=== PATIENT | female | born 1985 | race Caucasian/White ===

== ENCOUNTER 2016-08-16 18:40 | Emergency (ER) | payer OTHER ==
[2016-08-16 19:07] VITALS: BP 138/75; PULSE 86; RESP 18; TEMP 98.5; O2SAT 98
== END 2016-08-16 19:42 | disposition left against medical advice (07) | DRG 552 ==
LOC: ED 18:40
DX: M54.9 Dorsalgia, unspecified (principal)
CPT/HCPCS: 99281; 99282

== ENCOUNTER 2016-08-23 15:24 | Emergency (ER) | payer OTHER ==
[2016-08-23 15:42] VITALS: RESP 22; TEMP 97.1
[2016-08-23 16:09] LABS: BASOPHILS % (AUTO) 1 % (0-3); EOSINOPHILS % (AUTO) 0 % (0-9); HEMATOCRIT 40 % (35-47); MEAN CORPUSCULAR HGB CONC 34.1 gm/dl (32.0-36.0); MONOCYTES % (AUTO) 5.7 % (0-12); NEUTROPHILS % (AUTO) 66.6 % (37-80)
[2016-08-23 16:19] LABS: APPEARANCE,URINE Clear; BILIRUBIN,URINE NEGATIVE (NEGATIVE); COLOR,URINE Yellow; GLUCOSE, URINE (UA) NEGATIVE (NEGATIVE); KETONES,URINE NEGATIVE (NEGATIVE); LEUKOCYTE ESTERASE ,URINE NEGATIVE (NEGATIVE); NITRATE,URINE NEGATIVE (NEGATIVE); OCCULT BLOOD,URINE NEGATIVE (NEG-TRACE); UROBILINOGEN,URINE 0.2 (0.2-1.0 EU)
[2016-08-23 16:32] LABS: ALBUMIN 4.4 gm/dl (3.4-5.0); ALT 27 IU/L (14-63); CALCIUM 9.1 mg/dl (8.5-10.1); GLOM FILT RATE 68 mL/min (>60); POTASSIUM 3.8 mMol/L (3.5-5.1); SODIUM 139 mMol/L (136-145); THYROID STIMULATING HORMONE 0.703 uU/ml (0.358-3.740)
[2016-08-23 16:33] LABS: AMPHETAMINES NEGATIVE (NEGATIVE); METHADONE NEGATIVE (NEGATIVE); OPIATES(OP13) NEGATIVE (NEGATIVE); OXYCODONE(OXY) NEGATIVE (NEGATIVE); PROPOXYPHENE(PPX) NEGATIVE (NEGATIVE); RBC,URINE NEGATIVE (0-3AV/HPF); WBC,URINE 0-1 (0-5AV/HPF)
[2016-08-23 19:03] LABS: SALICYLATE 2.9 mg/dl (2.8-30.0)
[2016-08-23] MEDS ORDERED: APAP/HYDROCODONE 325/5 TAB PO ONE (19:19)
[2016-08-23] MEDS ORDERED: APAP/HYDROCODONE 325/5 TAB ONE (19:24)
[2016-08-23 20:01] VITALS: O2SAT 98
[2016-08-23 20:02] VITALS: BP 117/60; PULSE 88
== END 2016-08-23 19:54 | disposition short-term general hospital (02) | DRG 880 ==
LOC: ED 15:24
DX: R45.851 Suicidal ideations (principal)
CPT/HCPCS: 36415; 80053; 80301; 80302; 80329; 81001; 84443; 84703; 85025; 99284; 99285

== ENCOUNTER 2016-09-27 10:08 | Emergency (ER) | payer OTHER ==
[2016-09-27 11:13] VITALS: RESP 18; TEMP 97.4; O2SAT 96
[2016-09-27 11:55] VITALS: BP 120/80; PULSE 74
== END 2016-09-27 11:51 | disposition home or self-care (01) | DRG 392 ==
LOC: ED 10:08
DX: R13.10 Dysphagia, unspecified (principal); E03.9 Hypothyroidism, unspecified
CPT/HCPCS: 99282

== ENCOUNTER 2016-11-10 17:19 | Emergency (ER) | payer OTHER ==
[2016-11-10] MEDS ORDERED: KETOROLAC TROMETHAMINE 30 MG/ML SOL IM ONE (18:41)
[2016-11-10 18:50] LABS: BASOPHILS % (AUTO) 1 % (0-3); EOSINOPHILS % (AUTO) 1 % (0-9); HEMATOCRIT 31 % (35-47); MEAN CORPUSCULAR HGB CONC 33.9 gm/dl (32.0-36.0); MEAN CORPUSCULAR VOLUME 90 fL (81-99); MONOCYTES % (AUTO) 6.3 % (0-12); NEUTROPHILS % (AUTO) 74.1 % (37-80)
[2016-11-10] MEDS ORDERED: KETOROLAC TROMETHAMINE 30 MG/ML SOL ONE (18:56)
[2016-11-10 19:11] LABS: CALCIUM 8.3 mg/dl (8.5-10.1); POTASSIUM 3.9 mMol/L (3.5-5.1)
[2016-11-10] MEDS ORDERED: MORPHINE SULFATE 10 MG/ML SOL ONE (19:57)
[2016-11-10] MEDS ORDERED: MORPHINE SULFATE 10 MG/ML SOL IV ONE ×2 (20:00→20:20)
[2016-11-10] MEDS: SODIUM CHLORIDE 0.9% FLUSH 10 ML SOL IV PRN ×2 (20:00→20:22)
[2016-11-10 20:59] VITALS: TEMP 100.1
[2016-11-10] MEDS ORDERED: AZITHROMYCIN 250 MG TAB PO ONE (21:23)
[2016-11-10] MEDS ORDERED: PREDNISONE 20 MG TAB PO ONE (21:24)
[2016-11-10] MEDS ORDERED: PREDNISONE 20 MG TAB ONE (21:27)
[2016-11-10] MEDS ORDERED: AZITHROMYCIN 250 MG TAB ONE (21:27)
[2016-11-10] MEDS ORDERED: APAP/HYDROCODONE 325/5 TAB PO ONE (21:30)
[2016-11-10] MEDS ORDERED: APAP/HYDROCODONE 325/5 TAB ONE (21:31)
[2016-11-10 21:39] VITALS: BP 145/86; PULSE 84; RESP 26; O2SAT 92
== END 2016-11-10 21:47 | disposition home or self-care (01) | DRG 313 ==
LOC: ED 17:19
DX: R07.89 Other chest pain (principal); J06.9 Acute upper respiratory infection, unspecified; Z72.0 Tobacco use; R06.00 Dyspnea, unspecified
CPT/HCPCS: 36415; 71020; 71275; 80053; 83880; 84484; 84703; 85025; 85378; 87804; 93005; 96372; 96374; 99284; 99285; J1885; J2270; Q9967

== ENCOUNTER 2016-11-11 18:17 | Emergency (ER) | payer OTHER ==
[2016-11-11 18:44] VITALS: BP 141/86; PULSE 96; RESP 18; TEMP 98.4; O2SAT 95
== END 2016-11-11 19:28 | disposition home or self-care (01) | DRG 195 ==
LOC: ED 18:17
DX: R09.1 Pleurisy (principal)
CPT/HCPCS: 99282

== ENCOUNTER 2016-12-21 18:19 | Emergency (ER) | payer OTHER ==
[2016-12-21] MEDS ORDERED: HYDROMORPHONE HCL 2 MG/ML 1 ML SOL IV ONE ×2 (18:52→19:31)
[2016-12-21] MEDS ORDERED: HYDROMORPHONE HCL 2 MG/ML 1 ML SOL ONE ×2 (18:53→19:32)
[2016-12-21] MEDS: SODIUM CHLORIDE 0.9% FLUSH 10 ML SOL IV PRN ×2 (19:00→19:35)
[2016-12-21 19:43] VITALS: RESP 16; TEMP 98.7
[2016-12-21] MEDS ORDERED: ONDANSETRON HCL 4 MG/2 ML SOL IV ONE (19:47)
[2016-12-21 19:59] VITALS: BP 108/63; PULSE 87; O2SAT 98
== END 2016-12-21 20:02 | disposition home or self-care (01) ==
LOC: ED 18:19
DX: S20.211A Contusion of right front wall of thorax, initial encounter (principal); V86.59XA Driver of other special all-terrain or other off-road motor vehicle injured in nontraffic accident, initial encounter; R10.11 Right upper quadrant pain; S40.812A Abrasion of left upper arm, initial encounter; S40.811A Abrasion of right upper arm, initial encounter; S20.419A Abrasion of unspecified back wall of thorax, initial encounter
CPT/HCPCS: 99285 ×3; 74160; J1170 ×2; Q9967; 71101

== ENCOUNTER 2016-12-30 14:06 | Emergency (ER) | payer OTHER ==
[2016-12-30 14:07] VITALS: O2SAT 98
[2016-12-30 14:23] VITALS: RESP 20; TEMP 97.7
[2016-12-30 14:55] LABS: BASOPHILS % (AUTO) 2 % (0-3); EOSINOPHILS % (AUTO) 4 % (0-9); HEMATOCRIT 37 % (35-47); MEAN CORPUSCULAR HGB CONC 35.6 gm/dl (32.0-36.0); MEAN CORPUSCULAR VOLUME 85 fL (81-99); MONOCYTES % (AUTO) 10.9 % (0-12); NEUTROPHILS % (AUTO) 49.5 % (37-80)
[2016-12-30 15:00] LABS: CALCIUM 9.8 mg/dl (8.5-10.1)
[2016-12-30 15:01] LABS: POTASSIUM 2.5 mMol/L (3.5-5.1)
[2016-12-30] MEDS ORDERED: POTASSIUM CHLORIDE 10 MEQ TER PO ONE (15:01)
[2016-12-30] MEDS ORDERED: POTASSIUM CHLORIDE 10 MEQ TER ONE (15:02)
[2016-12-30 15:33] VITALS: BP 143/84; PULSE 96
== END 2016-12-30 15:34 | disposition home or self-care (01) ==
LOC: ED 14:06
DX: J18.9 Pneumonia, unspecified organism (principal); E87.6 Hypokalemia; R10.11 Right upper quadrant pain
CPT/HCPCS: 36415; 71020; 80053; 85025; 85378; 99282; 99283; 99284

== ENCOUNTER 2017-06-08 23:07 | Observation (INO) | payer OTHER ==
[2017-06-08] MEDS ORDERED: LORAZEPAM 2 MG/ML SOL IV ONE (23:22)
[2017-06-08] MEDS ORDERED: LORAZEPAM 2 MG/ML SOL ONE (23:30)
[2017-06-08 23:50] LABS: BASOPHILS % (AUTO) 1 % (0-3); EOSINOPHILS % (AUTO) 1 % (0-9); HEMATOCRIT 39 % (35-47); MEAN CORPUSCULAR HGB CONC 36.2 gm/dl (32.0-36.0); MEAN CORPUSCULAR VOLUME 88 fL (81-99); NEUTROPHILS % (AUTO) 51.3 % (37-80)
[2017-06-08 23:59] LABS: ALBUMIN 4.2 gm/dl (3.4-5.0); ALT 39 IU/L (14-63); CALCIUM 10.5 mg/dl (8.5-10.1); GLOM FILT RATE 52 mL/min (>60); SODIUM 135 mMol/L (136-145)
[2017-06-09 00:01] LABS: POTASSIUM 1.9 mMol/L (3.5-5.1)
[2017-06-09] MEDS ORDERED: POTASSIUM CHLORIDE 2 MEQ/ML 60 MEQ, LIDOCAINE HCL 1% MDV 2 ML in SODIUM CHLORIDE 0.9% 1... IV ONE (00:04)
[2017-06-09] MEDS ORDERED: SODIUM CHLORIDE 0.9% 1000ML 1,000 ML with POTASSIUM CHLORIDE 2 MEQ/ML 10 MEQ IV ONE (00:05)
[2017-06-09] MEDS ORDERED: POTASSIUM CHLORIDE 2 MEQ/ML SOL IV ONE (00:07)
[2017-06-09] MEDS ORDERED: LIDOCAINE HCL 1% MPF SOL ONE (00:08)
[2017-06-09] MEDS ORDERED: SODIUM CHLORIDE 0.9% FLUSH 10 ML SOL IV PRN (00:37)
[2017-06-09] MEDS ORDERED: DIPHENHYDRAMINE 50 MG/ML SOL IV PRN (00:52)
[2017-06-09] MEDS ORDERED: DIPHENHYDRAMINE 50 MG/ML SOL ONE (00:53)
[2017-06-09] MEDS ORDERED: ACETAMINOPHEN 500 MG 500 MG TAB PO PRN (02:45)
[2017-06-09] MEDS: SODIUM CHLORIDE 0.9% FLUSH 10 ML SOL IV SCH ×3 (02:55→17:21)
[2017-06-09] MEDS ORDERED: IBUPROFEN 400 MG TAB PO PRN (08:42)
[2017-06-09] MEDS ORDERED: RIZATRIPTAN BENZOATE PO PRN (08:42)
[2017-06-09 09:02] LABS: APPEARANCE,URINE Slightly Cloudy; BILIRUBIN,URINE NEGATIVE (NEGATIVE); COLOR,URINE Yellow; GLUCOSE, URINE (UA) NEGATIVE (NEGATIVE); KETONES,URINE NEGATIVE (NEGATIVE); LEUKOCYTE ESTERASE ,URINE NEGATIVE (NEGATIVE); NITRATE,URINE NEGATIVE (NEGATIVE); OCCULT BLOOD,URINE NEGATIVE (NEG-TRACE); UROBILINOGEN,URINE 0.2 (0.2-1.0 EU)
[2017-06-09 09:38] LABS: RBC,URINE 0-2 (0-3AV/HPF); WBC,URINE 0-4 (0-5AV/HPF)
[2017-06-09] MEDS: HYDROCHLOROTHIAZIDE 25 MG TAB PO SCH (09:47)
[2017-06-09] MEDS: FLUOXETINE HYDROCHLORIDE 10 MG CAP PO SCH (09:48)
[2017-06-09] MEDS ORDERED: POTASSIUM CHLORIDE 10 MEQ TER PO ONE ×5 (11:30→20:00)
[2017-06-09 23:51] VITALS: PULSE 76
[2017-06-10] MEDS: SODIUM CHLORIDE 0.9% FLUSH 10 ML SOL IV SCH ×2 (02:10→11:20)
[2017-06-10 07:23] LABS: CALCIUM 9.5 mg/dl (8.5-10.1); POTASSIUM 4.1 mMol/L (3.5-5.1)
[2017-06-10 09:41] LABS: AMPHETAMINES POSITIVE (NEGATIVE); METHADONE NEGATIVE (NEGATIVE); OPIATES(OP13) NEGATIVE (NEGATIVE); OXYCODONE(OXY) NEGATIVE (NEGATIVE); PROPOXYPHENE(PPX) NEGATIVE (NEGATIVE); TRICYCLIC ANTIDEPRESSANTS NEGATIVE (NEGATIVE)
[2017-06-10] MEDS: HYDROCHLOROTHIAZIDE 25 MG TAB PO SCH (09:54)
[2017-06-10] MEDS: FLUOXETINE HYDROCHLORIDE 10 MG CAP PO SCH (10:04)
[2017-06-10 10:15] VITALS: BP 113/70; RESP 20; TEMP 97.2; O2SAT 99
== END 2017-06-10 10:50 | disposition home or self-care (01) ==
LOC: ED 23:07 → ACUTE CARE 06-09 00:45
PROVIDERS: ADMIT Surgery; ATTEND Surgery
DX: N17.9 Acute kidney failure, unspecified (principal); E87.6 Hypokalemia; G93.5 Compression of brain; E86.0 Dehydration
CPT/HCPCS: 36415; 80048; 80053; 80305; 81001; 84132; 84484; 85025; 96365; 96374; 99284; 99285; J1200; J2060; J3480; J2001

== ENCOUNTER 2017-07-25 10:17 | Emergency (ER) | payer OTHER ==
[2017-07-25] MEDS: SODIUM CHLORIDE 0.9% FLUSH 10 ML SOL IV PRN ×3 (10:30→11:34)
[2017-07-25] MEDS ORDERED: ONDANSETRON HCL 4 MG/2 ML 4 MG in SODIUM CHLORIDE 0.9% 100 ML 100 ML IV ONE (10:33)
[2017-07-25] MEDS ORDERED: PROCHLORPERAZINE EDISYLATE 5 MG/ML SOL IV ONE (10:33)
[2017-07-25] MEDS ORDERED: PROCHLORPERAZINE EDISYLATE 5 MG/ML SOL ONE (10:38)
[2017-07-25] MEDS ORDERED: ONDANSETRON HCL 4 MG/2 ML SOL ONE (10:38)
[2017-07-25] MEDS: SODIUM CHLORIDE 0.9% 1000ML 1,000 ML IV SCH ×2 (11:00→12:32)
[2017-07-25 11:05] VITALS: TEMP 97
[2017-07-25 11:10] LABS: BASOPHILS % (AUTO) 1 % (0-3); EOSINOPHILS % (AUTO) 1 % (0-9); HEMATOCRIT 34 % (35-47); MEAN CORPUSCULAR VOLUME 92 fL (81-99); MONOCYTES % (AUTO) 8.2 % (0-12); NEUTROPHILS % (AUTO) 68.1 % (37-80)
[2017-07-25 11:33] LABS: ALBUMIN 3.4 gm/dl (3.4-5.0); CALCIUM 8.9 mg/dl (8.5-10.1); POTASSIUM 3.8 mMol/L (3.5-5.1); THYROID STIMULATING HORMONE 0.765 uIU/ml (0.358-3.740)
[2017-07-25] MEDS ORDERED: MORPHINE SULFATE 10 MG/ML SOL IV ONE (11:33)
[2017-07-25] MEDS ORDERED: MORPHINE SULFATE 10 MG/ML SOL ONE (11:35)
[2017-07-25 11:51] VITALS: RESP 16
[2017-07-25 12:05] VITALS: BP 121/74; PULSE 78; O2SAT 98
[2017-07-25 12:22] LABS: AMPHETAMINES POSITIVE (NEGATIVE); METHADONE NEGATIVE (NEGATIVE); OPIATES(OP13) POSITIVE (NEGATIVE); OXYCODONE(OXY) NEGATIVE (NEGATIVE); PROPOXYPHENE(PPX) NEGATIVE (NEGATIVE); TRICYCLIC ANTIDEPRESSANTS NEGATIVE (NEGATIVE)
== END 2017-07-25 12:56 | disposition home or self-care (01) ==
LOC: ED 10:17
DX: G43.119 Migraine with aura, intractable, without status migrainosus (principal)
CPT/HCPCS: 36415; 70450; 80053; 80305; 84443; 84703; 85025; 93005; 99285; J0780; J2270; J2405

== ENCOUNTER 2017-11-29 14:27 | Emergency (ER) | payer OTHER ==
[2017-11-29 14:42] VITALS: TEMP 97.2
[2017-11-29] MEDS ORDERED: NITROGLYCERIN 0.4 MG TAB SL PRN (14:42)
[2017-11-29] MEDS ORDERED: ASPIRIN 81 MG CHEWABLE CTB PO STA (14:42)
[2017-11-29] MEDS ORDERED: KETOROLAC TROMETHAMINE 30 MG/ML SOL IV ONE (14:44)
[2017-11-29] MEDS ORDERED: KETOROLAC TROMETHAMINE 30 MG/ML SOL ONE (14:45)
[2017-11-29 15:00] LABS: BASOPHILS % (AUTO) 1 % (0-3); BLOOD UREA NITROGEN 10 mg/dl (7-18); CARBON DIOXIDE 26.7 mEq/L (21-32); CHLORIDE 97 mMol/L (98-107); CREATINE KINASE 141 U/L (26-192); CREATININE 0.94 mg/dl (0.60-1.00); EOSINOPHILS % (AUTO) 1 % (0-9); GLOM FILT RATE 69 mL/min (>60); GLUCOSE 106 mg/dl (74-106); HEMATOCRIT 41 % (35-47); HEMOGLOBIN 14.5 gm/dl (12.0-15.5); INR 0.88 (0.86-1.12); LYMPHOCYTES % (AUTO) 30.9 % (10-50); MEAN CORPUSCULAR HGB CONC 35.4 gm/dl (32.0-36.0); MEAN CORPUSCULAR VOLUME 90 fL (81-99); MONOCYTES % (AUTO) 7.6 % (0-12); NEUTROPHILS % (AUTO) 58.9 % (37-80); SODIUM 137 mMol/L (136-145); TROP I < 0.017 ng/ml (0.000-0.056)
[2017-11-29 15:01] LABS: POTASSIUM 2.9 mMol/L (3.5-5.1)
[2017-11-29] MEDS ORDERED: POTASSIUM CHLORIDE 10 MEQ TER PO ONE (15:06)
[2017-11-29] MEDS: SODIUM CHLORIDE 0.9% FLUSH 10 ML SOL IV PRN ×2 (15:07→15:10)
[2017-11-29] MEDS ORDERED: POTASSIUM CHLORIDE 10 MEQ TER ONE (15:09)
[2017-11-29] MEDS ORDERED: ASPIRIN 81 MG CHEWABLE CTB ONE (15:09)
[2017-11-29] MEDS ORDERED: APAP/HYDROCODONE 325/5 TAB PO ONE (15:56)
[2017-11-29] MEDS ORDERED: APAP/HYDROCODONE 325/5 TAB ONE (15:59)
[2017-11-29 16:21] VITALS: O2SAT 97
[2017-11-29 16:22] VITALS: RESP 20
[2017-11-29 16:23] VITALS: BP 137/91; PULSE 89
== END 2017-11-29 16:03 | disposition home or self-care (01) ==
LOC: ED 14:27
DX: R09.1 Pleurisy (principal)
CPT/HCPCS: 71045; 80048; 82550; 84484; 84703; 85025; 85610; 85730; 93005; 99285; J1885; A9270-GY

== ENCOUNTER 2017-12-22 11:16 | Emergency (ER) | payer OTHER ==
[2017-12-22 11:25] VITALS: TEMP 96.8
[2017-12-22] MEDS ORDERED: ONDANSETRON HCL 4 MG/2 ML SOL IV ONE (11:32)
[2017-12-22] MEDS ORDERED: MORPHINE SULFATE 10 MG/ML SOL IV ONE (11:33)
[2017-12-22] MEDS ORDERED: SODIUM CHLORIDE 0.9% 1000 ML SOL IV ONE (11:34)
[2017-12-22 11:40] LABS: BASOPHILS % (AUTO) 1 % (0-3); EOSINOPHILS % (AUTO) 0 % (0-9); HEMATOCRIT 42 % (35-47); HEMOGLOBIN 14.6 gm/dl (12.0-15.5); LYMPHOCYTES % (AUTO) 10.3 % (10-50); MEAN CORPUSCULAR HEMOGLOBIN 31.6 pg (27.0-32.0); MEAN CORPUSCULAR HGB CONC 34.5 gm/dl (32.0-36.0); MEAN CORPUSCULAR VOLUME 92 fL (81-99); MONOCYTES % (AUTO) 5.7 % (0-12); NEUTROPHILS % (AUTO) 83.2 % (37-80)
[2017-12-22] MEDS ORDERED: MORPHINE SULFATE 10 MG/ML SOL ONE (11:47)
[2017-12-22] MEDS ORDERED: ONDANSETRON HCL 4 MG/2 ML SOL ONE (11:47)
[2017-12-22 11:53] LABS: ALBUMIN 4.4 gm/dl (3.4-5.0); BILIRUBIN,TOTAL 0.3 mg/dl (0.2-1.0); CALCIUM 8.9 mg/dl (8.5-10.1); CARBON DIOXIDE 29.3 mEq/L (21-32); CREATININE 0.77 mg/dl (0.60-1.00); TOTAL PROTEIN 8.7 gm/dl (6.4-8.2)
[2017-12-22 12:17] LABS: APPEARANCE,URINE Clear; BILIRUBIN,URINE NEGATIVE (NEGATIVE); COLOR,URINE Light yellow; GLUCOSE, URINE (UA) NEGATIVE (NEGATIVE); KETONES,URINE NEGATIVE (NEGATIVE); LEUKOCYTE ESTERASE ,URINE NEGATIVE (NEGATIVE); NITRATE,URINE NEGATIVE (NEGATIVE); OCCULT BLOOD,URINE 2+ (NEG-TRACE); PH,URINE 7.5; UROBILINOGEN,URINE 0.2 (0.2-1.0 EU)
[2017-12-22] MEDS ORDERED: KETOROLAC TROMETHAMINE 30 MG/ML SOL IV ONE (12:31)
[2017-12-22] MEDS ORDERED: KETOROLAC TROMETHAMINE 30 MG/ML SOL ONE (12:32)
[2017-12-22 12:36] LABS: BACTERIA 1+ (< 1+); CRYSTALS NEGATIVE (0-3 AVE/HPF); EPITHELIAL CELLS 0-1 (SQUAMOUS); WBC,URINE 0-2 (0-5AV/HPF)
[2017-12-22 12:40] VITALS: O2SAT 97
[2017-12-22 12:45] VITALS: BP 118/73; PULSE 78; RESP 16
== END 2017-12-22 14:03 | disposition home or self-care (01) ==
LOC: ED 11:16
DX: N15.9 Renal tubulo-interstitial disease, unspecified (principal); R10.9 Unspecified abdominal pain
CPT/HCPCS: 74176; 80053; 81001; 84703; 85025; 96365; 96374; 96375; 99283; 99285; J1885; J2270; J2405

== ENCOUNTER 2018-05-02 19:49 | Emergency (ER) | payer MEDICAID, OTHER ==
[2018-05-02 19:49] VITALS: O2SAT 97
[2018-05-02 20:16] VITALS: BP 139/93; PULSE 100; RESP 18; TEMP 98.3
[2018-05-02] MEDS ORDERED: FUROSEMIDE 20mg SOL IV ONE (20:45)
[2018-05-02 21:02] LABS: BASOPHILS % (AUTO) 1 % (0-3); EOSINOPHILS % (AUTO) 3 % (0-9); HEMATOCRIT 34 % (35-47); HEMOGLOBIN 11.2 gm/dl (12.0-15.5); LYMPHOCYTES % (AUTO) 41.6 % (10-50); MEAN CORPUSCULAR HEMOGLOBIN 30.6 pg (27.0-32.0); MEAN CORPUSCULAR HGB CONC 32.9 gm/dl (32.0-36.0); MEAN CORPUSCULAR VOLUME 93 fL (81-99); MONOCYTES % (AUTO) 8.3 % (0-12); NEUTROPHILS % (AUTO) 46.2 % (37-80)
[2018-05-02 21:19] LABS: ALBUMIN 3.2 gm/dl (3.4-5.0); BILIRUBIN,TOTAL 0.2 mg/dl (0.2-1.0); CALCIUM 8.7 mg/dl (8.5-10.1); CARBON DIOXIDE 26.6 mEq/L (21-32); CREATININE 0.59 mg/dl (0.60-1.00); POTASSIUM 4.1 mMol/L (3.5-5.1); TOTAL PROTEIN 6.2 gm/dl (6.4-8.2)
== END 2018-05-02 21:09 | disposition home or self-care (01) | DRG 948 ==
LOC: ED 19:49
DX: R60.9 Edema, unspecified (principal); T40.4X5A Adverse effect of other synthetic narcotics, initial encounter
CPT/HCPCS: 80053; 85025; 96374; 99282; 99283; J1940

== ENCOUNTER 2018-10-27 13:36 | Emergency (ER) | payer MEDICAID, OTHER ==
[2018-10-27 13:55] VITALS: BP 147/109; PULSE 88; RESP 18; TEMP 97.7; O2SAT 98
[2018-10-27] MEDS ORDERED: SODIUM CHLORIDE 0.9% 1000ML 1,000 ML IV ONE (14:03)
[2018-10-27] MEDS ORDERED: KETOROLAC TROMETHAMINE 30 MG/ML SOL IV ONE (14:04)
[2018-10-27] MEDS ORDERED: METOCLOPRAMIDE HYDROCHLORIDE 5 MG/ML SOL IV ONE (14:04)
[2018-10-27] MEDS ORDERED: DIPHENHYDRAMINE 50 MG/ML SOL IV ONE (14:04)
[2018-10-27] MEDS ORDERED: KETOROLAC TROMETHAMINE 30 MG/ML SOL ONE (14:22)
[2018-10-27] MEDS ORDERED: DIPHENHYDRAMINE 50 MG/ML SOL ONE (14:23)
[2018-10-27] MEDS ORDERED: METOCLOPRAMIDE HYDROCHLORIDE 5 MG/ML SOL ONE (14:23)
[2018-10-27 15:02] LABS: APPEARANCE,URINE Clear; BILIRUBIN,URINE NEGATIVE (NEGATIVE); COLOR,URINE Yellow; GLUCOSE, URINE (UA) NEGATIVE (NEGATIVE); KETONES,URINE NEGATIVE (NEGATIVE); LEUKOCYTE ESTERASE ,URINE NEGATIVE (NEGATIVE); NITRATE,URINE NEGATIVE (NEGATIVE); OCCULT BLOOD,URINE NEGATIVE (NEG-TRACE); UROBILINOGEN,URINE 0.2 (0.2-1.0 EU)
[2018-10-27 15:11] LABS: RBC,URINE 0-2 (0-3AV/HPF)
[2018-10-27 15:12] LABS: BACTERIA 1+ (< 1+); CRYSTALS NEGATIVE (0-3 AVE/HPF); TRICYCLIC ANTIDEPRESSANTS NEGATIVE (NEGATIVE)
[2018-10-27 15:13] LABS: AMPHETAMINES POSITIVE (NEGATIVE); BARBITUATES NEGATIVE (NEGATIVE); BENZODIAZEPINES NEGATIVE (NEGATIVE); CANNABINOL(THC) NEGATIVE (NEGATIVE); COCAINE(COC) NEGATIVE (NEGATIVE); METHADONE NEGATIVE (NEGATIVE); METHAMPHETAMINES NEGATIVE (NEGATIVE); OPIATES(OPI) NEGATIVE (NEGATIVE); OXYCODONE(OXY) POSITIVE (NEGATIVE); PROPOXYPHENE(PPX) NEGATIVE (NEGATIVE)
== END 2018-10-27 15:22 | disposition home or self-care (01) | DRG 103 ==
LOC: ED 13:36
DX: G43.119 Migraine with aura, intractable, without status migrainosus (principal)
CPT/HCPCS: 80305; 81001; 84703; 96365; 96374; 96375; 99282; 99284; J1200; J1885; J2765

== ENCOUNTER 2018-11-15 20:58 | Emergency (ER) | payer OTHER ==
[2018-11-15 20:58] VITALS: O2SAT 98
[2018-11-15] MEDS ORDERED: ALBUTEROL/IPRATROPIUM 1 VIAL SOL INH ONE (21:14)
[2018-11-15 21:26] VITALS: PULSE 88; TEMP 98.2
[2018-11-15 21:26] LABS: BASOPHILS % (AUTO) 2 % (0-3); EOSINOPHILS % (AUTO) 2 % (0-9); HEMATOCRIT 38 % (35-47); HEMOGLOBIN 12.5 gm/dl (12.0-15.5); LYMPHOCYTES % (AUTO) 39.6 % (10-50); MEAN CORPUSCULAR HEMOGLOBIN 29.7 pg (27.0-32.0); MEAN CORPUSCULAR HGB CONC 32.8 gm/dl (32.0-36.0); MEAN CORPUSCULAR VOLUME 90 fL (81-99); NEUTROPHILS % (AUTO) 49.8 % (37-80)
[2018-11-15] MEDS ORDERED: ALBUTEROL/IPRATROPIUM 1 VIAL SOL ONE (21:29)
[2018-11-15 21:37] LABS: CREATININE 0.73 mg/dl (0.60-1.00); POTASSIUM 4.3 mMol/L (3.5-5.1)
[2018-11-15 22:05] VITALS: BP 134/82; RESP 18
== END 2018-11-15 22:04 | disposition home or self-care (01) | DRG 556 ==
LOC: ED 20:58
DX: M62.838 Other muscle spasm (principal); R07.9 Chest pain, unspecified
CPT/HCPCS: 36415; 71046; 80048; 85025; 85378; 99283

== ENCOUNTER 2018-12-27 09:27 | Outpatient (CLI) | payer OTHER | END 2018-12-27 09:28 | disposition home or self-care (01) | DRG 556 | LOC: CONVCARE 09:27 | PROVIDERS: ATTEND Orthopaedic Surgery | DX: M25.531 Pain in right wrist (principal) | CPT/HCPCS: 73100; 73140; 73600 ==

== ENCOUNTER 2019-01-10 08:00 | Day surgery (SDC) | payer OTHER ==
[2019-01-10] MEDS ORDERED: PROPOFOL 500 MG/50 ML EMU IV ONE (09:30)
[2019-01-10] MEDS ORDERED: FENTANYL 100MCG/2ML SOL ONE (09:31)
[2019-01-10] MEDS ORDERED: MIDAZOLAM 2 MG/2 ML SOL ONE (09:53)
[2019-01-10] MEDS: LIDOCAINE HCL 1% MPF 30 SOL ONE ×4 (10:10→10:30)
[2019-01-10] MEDS ORDERED: CEFAZOLIN SODIUM 1 GM PDS ONE (10:17)
[2019-01-10 11:25] VITALS: BP 109/68; PULSE 69; RESP 18; TEMP 97.4; O2SAT 97
== END 2019-01-10 12:02 | disposition home or self-care (01) | DRG 558 ==
LOC: SURG 08:00
PROVIDERS: ATTEND Orthopaedic Surgery
DX: M65.4 Radial styloid tenosynovitis [de Quervain] (principal); M65.312 Trigger thumb, left thumb
CPT/HCPCS: 84703; J0690; J2250; J3010; J2001; J2704